=== PATIENT | female | born 2005 | race Caucasian/White ===

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

== ENCOUNTER 2025-01-18 07:00 | Emergency (ER) | payer OTHER ==
[2025-01-18 07:09] VITALS: BMI 38.7
[2025-01-18] MEDS ORDERED: ONDANSETRON 4 MG/2 ML VIAL ONE (08:23)
[2025-01-18] MEDS ORDERED: KETOROLAC TROMETHAMINE 30 MG/1 ML VIAL ONE (08:23)
[2025-01-18] MEDS ORDERED: FAMOTIDINE 20 MG/50 ML IVPB 20 MG/50 ML MG IVPB ONE (08:23)
[2025-01-18] MEDS: SODIUM CHLORIDE 0.9% 500 ML INFUS.BAG IV ONE ×2 (08:32→09:51)
[2025-01-18] MEDS: KETOROLAC TROMETHAMINE 30 MG/1 ML VIAL IVPUSH ONE (08:32)
[2025-01-18] MEDS: FAMOTIDINE 20 MG/50 ML IVPB 20 MG/50 ML MG IVPB ONE (08:32)
[2025-01-18] MEDS: ONDANSETRON 4 MG/2 ML VIAL IVPUSH ONE (08:33)
[2025-01-18 08:44] LABS: EPI CELLS 2 /uL (0-25.1); HYALINE CASTS 0 /uL (0-3.1); PH,URINE 5.5 (5.0-8.0); URINE APPEARANCE CLOUDY; URINE BACTERIA 16 /uL (0-1359); URINE BILIRUBIN NEGATIVE (NEGATIVE); URINE COLOR YELLOW; URINE GLUCOSE (UA) 1+ (NEGATIVE); URINE KETONE NEGATIVE (NEGATIVE); URINE LEUK ESTERASE NEGATIVE (NEGATIVE); URINE NITRITE NEGATIVE (NEGATIVE); URINE PROTEIN TRACE (NEGATIVE); URINE RBC 1906 /uL (0-23.9); URINE UROBILINOGEN 0.2 mg/dL (0.2-1.0); URINE WBC 4 /uL (0-25.8)
[2025-01-18 08:52] LABS: ABSOLUTE IMMATURE GRANULOCYTES 0.03 x10^3/uL (0.0-0.031); BASOPHILS # 0.03 x10^3/uL (0.01-0.08); EOSINOPHIL % 2.4 % (0.7-5.8); EOSINOPHILS # 0.26 x10^3/uL (0.04-0.36); HEMATOCRIT 41.3 % (34.1-44.9); HEMOGLOBIN 13.6 g/dL (11.2-15.7); MCHC 32.9 g/dl (32.2-35.5); MEAN CELL VOLUME 87.3 fl (79.4-94.8); MEAN PLT VOLUME 10.4 fl (9.4-12.3); MONOCYTE % 5.5 % (4.7-12.5); PLATELET COUNT 348 x10^3/uL (182-369); RDW 11.6 % (12.0-16.2)
[2025-01-18 09:11] LABS: POTASSIUM 4.1 mmol/L (3.5-5.1)
[2025-01-18 09:14] LABS: ALBUMIN 3.8 g/dl (3.4-5.0); BLOOD UREA NITROGEN 12.9 mg/dL (7-18)
[2025-01-18 09:17] LABS: CREATININE 0.8 mg/dL (0.55-1.3)
[2025-01-18 09:18] LABS: BILIRUBIN,TOTAL 0.2 mg/dL (0.2-1)
[2025-01-18 09:19] LABS: TOT PROT 7.5 g/dl (6.4-8.2)
[2025-01-18] MEDS ORDERED: ACETAMINOPHEN INJECTION 100 ML ONE (09:41)
[2025-01-18] MEDS: ACETAMINOPHEN 1000 MG/100 ML BAG IVPB ONE (09:45)
[2025-01-18 11:46] LABS: HIV INTERPRETATION NEGATIVE (NEGATIVE)
[2025-01-18 11:48] LABS: HCV DIAGNOSTIC IN-HOUSE W/RFLX NON-REACTIVE (NONREACTIVE)
[2025-01-18 12:22] VITALS: BP 107/57; PULSE 82; RESP 17; TEMP 98.4
== END 2025-01-18 13:11 | disposition home or self-care (01) ==
LOC: JER 07:00
PROC: 3E033GC Introduction of Other Therapeutic Substance into Peripheral Vein, Percutaneous Approach (ICD-10-PCS; principal; 2025-01-18)
PROC: 3E033NZ Introduction of Analgesics, Hypnotics, Sedatives into Peripheral Vein, Percutaneous Approach (ICD-10-PCS; 2025-01-18)
PROC: 3E0333Z Introduction of Anti-inflammatory into Peripheral Vein, Percutaneous Approach (ICD-10-PCS; 2025-01-18)
PROC: 3E033GC Introduction of Other Therapeutic Substance into Peripheral Vein, Percutaneous Approach (ICD-10-PCS; 2025-01-18)
DX: N93.8 Other specified abnormal uterine and vaginal bleeding (principal); R93.89 Abnormal findings on diagnostic imaging of other specified body structures; R42 Dizziness and giddiness; R11.2 Nausea with vomiting, unspecified; R10.33 Periumbilical pain; R10.32 Left lower quadrant pain
CPT/HCPCS: 36415; 76856-TC; 80053; 81003; 83690; 84703; 85025; 86803; 86850; 86900; 86901; 87086; 87389; 99284-25